=== PATIENT | female | born 1985 | race Caucasian/White ===

== ENCOUNTER 2018-10-30 13:13 | Emergency (ER) | payer SELFPAY ==
[2018-10-30] MEDS ORDERED: FAMOTIDINE 20 MG in NS 100 ML IV ONE (13:33)
[2018-10-30] MEDS ORDERED: methylPREDNISolone SOD SUCC 125 MG/2 ML VIAL IVP ONE (13:33)
--- NOTE | 2018-10-30 13:37 | EDPHY ---
H & P Stated Complaint: lip swelling and hives since 1 am - Personal History LMP (Females 10-55): Unknown Current Tetanus Diphtheria and Acellular Pertussis (TDAP): Yes - Medical/Surgical History Other PMH: arthritis. breast reduction. orthopaedic. uterine cervical surgeries tumorectomy Time Seen by Provider: 10/30/18 13:22 HPI/ROS: Chief Complaint: Lip swelling, skin rash HPI: 33-year-old woman with a history of rheumatoid arthritis woke this morning at 1:00 a.m. With some tingling sensation on her left in notice some swelling in her right lower lip. When she woke at 9 this morning she had swelling on both sides were left started to notice some hives. She took 50 mg of Benadryl. Patient states the hives or seem to be getting worsens continue to have some facial swelling. Last 25 mg of Benadryl about an hour ago. She does not have a history of similar episodes in the past. No new exposures. No history of allergies. She did take small ox a Kvng as well as she has got some dull aching associated with this. No fevers or chills. No headache. No nausea or vomiting. No difficulty breathing. No cough. No swelling sensation of fullness in her throat. ROS: 10 systems were reviewed and were negative except those elements noted in the HPI. PMH: Rheumatoid arthritis Social History: No smoking, no alcohol, no recreational drug use Family History: non-contributory Physical Exam: Gen: Awake, Alert, No Distress HEENT: Nose: no rhinorrhea Eyes: PERRLA, EOMI Mouth: Moist mucosa no oral pharyngeal edema, mild lower lip angioedema. Neck: Supple, no JVD Chest: nontender, lungs clear to auscultation Heart: S1, S2 normal, no murmur Abd: Soft, non-tender, no guarding Back: no CVA tenderness, no midline tenderness Ext: no edema, non-tender Skin: Generalized hives on her torso Neuro: CN II-XII intact, Sensation grossly intact, Strength 5/5 in bilateral upper and lower extremities (Víctor Wylie) Constitutional: Initial Vital Signs Temperature (C) 37 C 10/30/18 13:22 Heart Rate 105 H 10/30/18 13:22 Respiratory Rate 20 10/30/18 13:22 Blood Pressure 125/105 H 10/30/18 13:22 O2 Sat (%) 97 10/30/18 13:22 O2 Delivery Mode Room Air Allergies/Adverse Reactions: No Known Allergies Allergy (Unverified 10/30/18 13:27) Home Medications: Medication Instructions Recorded Meloxicam 10/30/18 Ondansetron Odt [Zofran Odt 4 mg 4 mg PO Q4 PRN #10 tab 10/30/18 (*)] predniSONE 60 mg PO DAILY #15 tab 10/30/18 - Data Points Medications Given: Discontinued Medications Diphenhydramine HCl (Benadryl Injection) 25 mg IVP EDNOW ONE Stop: 10/30/18 13:34 Last Admin: 10/30/18 13:51 Dose: 25 mg Famotidine 20 mg/ Sodium (Chloride) 102 mls @ 408 mls/hr IV EDNOW ONE Stop: 10/30/18 13:47 Last Admin: 10/30/18 14:00 Dose: 102 mls Sodium Chloride (Ns) 1,000 mls @ 0 mls/hr IV ONCE ONE PRN Reason: Wide Open Stop: 10/30/18 15:05 Last Admin: 10/30/18 13:45 Dose: 1,000 mls Ketorolac Tromethamine (Toradol) 15 mg IVP EDNOW ONE Stop: 10/30/18 14:19 Last Admin: 10/30/18 14:20 Dose: 15 mg Methylprednisolone Sodium Succinate (Solu-Medrol) 125 mg IVP EDNOW ONE Stop: 10/30/18 13:34 Last Admin: 10/30/18 13:47 Dose: 125 mg Ondansetron HCl (Zofran) 4 mg IVP EDNOW ONE Stop: 10/30/18 14:19 Last Admin: 10/30/18 14:20 Dose: 4 mg Ondansetron HCl (Zofran) 4 mg IVP EDNOW ONE Stop: 10/30/18 16:26 Last Admin: 10/30/18 16:30 Dose: 4 mg Point of Care Test Results: Urine Collection Date 10/30/18 Collection Time 15:40 HCG Results Negative Departure - Departure Disposition: Home, Routine, Self-Care Clinical Impression: Allergic reaction, Urticaria Condition: Good Instructions: Urticaria (ED), General Allergic Reaction (ED) Additional Instructions: You may continue taking Benadryl 50 the mg every 4-6 hours. Please complete your prednisone taper. Follow up with primary care physician in 3-4 days for recheck. Return to the emergency department for worsening swelling, rash, itching, difficulty breathing, or any other concerns. Referrals: NONE *PRIMARY CARE P,. [Primary Care Provider] - As per Instructions Prescriptions: Ondansetron Odt [Zofran Odt 4 mg (*)] 4 mg PO Q4 PRN #10 tab PRN Reason: Nausea/Vomiting, Use 1st predniSONE 60 mg PO DAILY #15 tab
[2018-10-30] MEDS ORDERED: ONDANSETRON 4 MG/2 ML VIAL IVP ONE ×2 (14:18→16:25)
[2018-10-30] MEDS ORDERED: KETOROLAC 15 MG/1 ML SDV IVP ONE (14:18)
[2018-10-30] MEDS ORDERED: ONDANSETRON 4 MG/2 ML VIAL ONE (14:20)
[2018-10-30] MEDS ORDERED: NS 1,000 ML IV ONE (15:04)
[2018-10-30 17:32] VITALS: BP 100/69
== END 2018-10-30 17:30 | disposition home or self-care (01) ==
LOC: CED 13:13
DX: T78.40XA Allergy, unspecified, initial encounter (principal); L50.9 Urticaria, unspecified
CPT/HCPCS: J1200; J1885; J2405; J2930

== ENCOUNTER 2018-11-01 15:20 | Emergency (ER) | payer SELFPAY ==
[2018-11-01] MEDS ORDERED: predniSONE 20 MG TAB PO ONE (15:40)
[2018-11-01] MEDS ORDERED: FAMOTIDINE 20 MG TAB PO ONE (15:41)
[2018-11-01] MEDS ORDERED: ALBUTEROL 3 ML DEYVIAL IH ONE (15:41)
--- NOTE | 2018-11-01 16:03 | EDPHY ---
H & P Time Seen by Provider: 11/01/18 15:25 HPI/ROS: This patient returns with increase in urticaria, new onset of mild wheeze and facial swelling after being seen for acute urticaria 3 days prior to this visit here and started on prednisone 60 mg a day until to continue Benadryl. She takes meloxicam for her rheumatoid arthritis and has continued meloxicam. Although 15 prednisone were prescribed -5 day course she was under the impression that is a 3 day course and so her last dose of prednisone was yesterday and she did not take any today. She did feel like she was improving in terms of the severity of her symptoms until today when her symptoms recurred off of the prednisone. Her last dose of Benadryl 50 mg with 2 hr prior to arrival. She does report some mild improvement in the severity of the itching with Benadryl but reports that the itching is increased to a sense of slight burning sensation on her skin. She denies any other complaints at this time is accompanied by her significant other/boyfriend. ROS: Constitutional: No fevers or chills recently. HEENT: Facial swelling as per HPI. No sore throat. No difficulty swallowing or talking. Pulmonary: No respiratory distress. No pleuritic pain. No coughing Cardiovascular: She denies any lightheadedness GI: No nausea vomiting Musculoskeletal: Patient complains of arthralgias the feel worse her than usual throughout her body hands ankles and wrists bilaterally she attributes to her rheumatoid arthritis with flare. 7 point review of symptoms is performed and otherwise negative with exception of pertinent positives and negatives listed in HPI and ROS Smoking Status: Never smoked Physical Exam: General Appearance: Pleasant 33-year-old female Alert, no distress. Eyes: Pupils equal and round no pallor or injection. ENT, Mouth: Mucous membranes moist. Mild generalized facial edema is present. Respiratory: Faint expiratory wheeze bilaterally. Cardiovascular: Regular rate and rhythm. Gastrointestinal: Abdomen is soft and nontender, no masses, bowel sounds normal. Neurological: GCS 15 Skin: Warm and dry. Patient has diffuse erythematous papules that zohaib easily with pressure present on her face back torso extremities. No petechia or purpura. Musculoskeletal: Neck is supple nontender. Extremities are symmetrical, full range of motion. Psychiatric: Patient is anxious but mood and affect are otherwise normal. DIFFERENTIAL DIAGNOSIS: After history and physical exam differential diagnosis was considered for acute allergic reaction off of the prednisone question meloxicam/NSAID allergy as trigger given that she has continue the meloxicam. Constitutional: Initial Vital Signs Temperature (C) 36.9 C 11/01/18 15:27 Heart Rate 88 11/01/18 15:27 Respiratory Rate 16 11/01/18 15:27 Blood Pressure 115/73 11/01/18 15:27 O2 Sat (%) 96 11/01/18 15:27 O2 Delivery Mode Room Air Allergies/Adverse Reactions: No Known Allergies Allergy (Verified 11/01/18 15:25) Home Medications: Medication Instructions Recorded Meloxicam 10/30/18 Albuterol Hfa Anes Only [Proair 2 puffs IH Q4 PRN #1 mdi 11/01/18 Hfa Icu (*)] Famotidine [Pepcid] 40 mg PO DAILY #7 tablet 11/01/18 predniSONE 60 mg PO DAILY #21 tab 11/01/18 traMADol [Ultram 50 mg (*)] 50 - 100 mg PO Q4 PRN #20 tab 11/01/18 MDM/Departure - MDM Medications Given: Discontinued Medications Acetaminophen (Tylenol) 1,000 mg PO EDNOW ONE Stop: 11/01/18 16:54 Last Admin: 11/01/18 16:56 Dose: 1,000 mg Albuterol (Proventil Neb) 3 ml IH EDNOW ONE Stop: 11/01/18 15:42 Last Admin: 11/01/18 15:54 Dose: 3 ml Famotidine (Pepcid) 40 mg PO EDNOW ONE Stop: 11/01/18 15:42 Last Admin: 11/01/18 15:52 Dose: 40 mg Ondansetron HCl (Zofran Odt) 8 mg PO EDNOW ONE Stop: 11/01/18 16:45 Last Admin: 11/01/18 16:47 Dose: 8 mg Prednisone (Prednisone) 60 mg PO EDNOW ONE Stop: 11/01/18 15:41 Last Admin: 11/01/18 15:53 Dose: 60 mg Tramadol HCl (Ultram) 50 mg PO EDNOW ONE Stop: 11/01/18 17:24 Last Admin: 11/01/18 17:27 Dose: 50 mg ED Course/Re-evaluation: Oral prednisone and Pepcid. Albuterol neb with decrease in wheeze. Tramadol for arthritic pain with improvement Tylenol in addition We observed the patient to watch for clinical improvement after medications. Her wheezing resolved. Her urticaria also significantly diminished 2 hr after prednisone dosing. I counseled her regarding allergic reaction in some detail answered all her questions prior to discharge home on prednisone, Pepcid, Benadryl and tramadol if needed for arthritic pain that prevents sleep. She understands need to return to the emergency department should she develop any significant worsening despite treatment plan of the above plus stopping her meloxicam as this may be the culprit eliciting the allergic response. - Depart Disposition: Home, Routine, Self-Care Clinical Impression: Acute allergic reaction Qualifiers: Encounter type: subsequent encounter Qualified Code(s): T78.40XD - Allergy, unspecified, subsequent encounter Rheumatoid arthritis Qualifiers: Rheumatoid arthritis location: multiple sites Rheumatoid factor presence: unspecified presence Qualified Code(s): M06.9 - Rheumatoid arthritis, unspecified Condition: Good Instructions: Famotidine (By mouth), Albuterol (By breathing), Prednisone (By mouth), Urticaria (ED) Additional Instructions: Diagnosis: Acute allergic reaction I suspect the meloxicam is the culprit causing your allergic reaction. Nonsteroidal anti-inflammatories a frequently implicated as causes of allergic response and this can occur even after you have been on the medication for sometime. Plan: Stop meloxicam Take prednisone 60 mg daily next dose after breakfast in the morning Used tramadol in addition if needed for pain that prevents sleep. No driving, alcohol work on tramadol ("ultram" - a synthetic opiate). Continue Benadryl for itching/skin rash Pepcid 40 mg a day for the next week in addition. Complete the prednisone course. Follow-up with vending machine refiller to consider allergy testing. Return emergency department for any significant worsening despite treatment plan Prescriptions: Albuterol Hfa Anes Only [Proair Hfa Icu (*)] 2 puffs IH Q4 PRN #1 mdi PRN Reason: Wheezing Famotidine [Pepcid] 40 mg PO DAILY #7 tablet predniSONE 60 mg PO DAILY #21 tab traMADol [Ultram 50 mg (*)] 50 - 100 mg PO Q4 PRN #20 tab PRN Reason: breakthrough pain Referrals: NONE *PRIMARY CARE P,. [Primary Care Provider] - As per Instructions Hannah MONDRAGON [Medical Doctor] - As per Instructions
[2018-11-01] MEDS ORDERED: ONDANSETRON DISINTEGRATING 4 MG TAB PO ONE (16:44)
[2018-11-01] MEDS ORDERED: ACETAMINOPHEN 500 MG TAB PO ONE (16:53)
[2018-11-01] MEDS ORDERED: traMADol 50 MG TAB PO ONE (17:23)
[2018-11-01 18:12] VITALS: BP 109/71
== END 2018-11-01 18:18 | disposition home or self-care (01) ==
LOC: CED 15:20
DX: T78.40XD Allergy, unspecified, subsequent encounter (principal); L50.9 Urticaria, unspecified; M06.9 Rheumatoid arthritis, unspecified
CPT/HCPCS: 99284-ER; J7512; J7613